=== PATIENT | male | born 1975 | race Two or more races ===

== ENCOUNTER 2020-02-21 06:46 | Inpatient (IN) | payer OTHER ==
[~2020-02-21] VITALS: Ht 195.6 cm; Wt 163.9 kg
[2020-02-21 13:24] LABS: Basophils # (auto) 0 10 ^3/uL (0-0.2); Basophils % (auto) 0.3 % (0.0-2.0); Eosinophils # (auto) 0 10 ^3/uL (0-0.8); Hematocrit 40.1 % (41.0-53.0); Hemoglobin 13.9 g/dL (13.5-17.5); Lymphocytes # (auto) 1.4 10 ^3/uL (0.4-5.4); Lymphocytes % (auto) 14.3 % (10.0-50.0); Mean Corpuscular Hemoglobin 30.8 pg (28.0-32.0); Mean Corpuscular Hgb Conc. 34.7 g/dL (32.0-36.0); Mean Corpuscular Volume 88.8 fL (80.0-100.0); Monocytes # (auto) 0.5 10 ^3/uL (0-1.3); Monocytes % (auto) 5.3 % (0.0-12.0); Neutrophils % (auto) 80.1 % (37.0-80.0); Nucleated Red Blood Cells % 0.1 %; Platelet Count (auto) 131 10^3/uL (140-450); Red Blood Cells 4.52 10^6/uL (4.5-5.90); Red Cell Distribution Width 13.7 % (11.8-14.3)
[2020-02-21 13:42] LABS: Albumin 2.8 g/dL (3.4-5.0); Anion Gap 10 (5-15); Blood Urea Nitrogen 13 mg/dL (7-18); Calcium 7.4 mg/dL (8.5-10.1); Carbon Dioxide 23 mmol/L (21-32); Chloride 97 mmol/L (98-107); Glucose 108 mg/dL (74-106); Potassium 3.5 mmol/L (3.5-5.1); Sodium 130 mmol/L (136-145)
[2020-02-21 13:47] LABS: Alanine Aminotransferase 152 U/L (16-61); Alkaline Phosphatase 61 U/L (45-117); Aspartate Aminotransferase 248 U/L (15-37); BUN/Creatinine Ratio 9.9; Bilirubin, Total 0.6 mg/dL (0.2-1.0); GFR African American 76 mL/min; GFR Non-African American 63 mL/min; Total Protein 7.6 g/dL (6.4-8.2)
[2020-02-21 13:54] LABS: INR 1.08 (0.9-1.15); Partial Thromboplastin Time 31.1 sec (23.0-31.2)
[2020-02-21] MEDS ORDERED: ONDANSETRON HCL 4 MG/2 ML VIAL IV PRN ×2 (15:00→23:00)
[2020-02-21] MEDS ORDERED: DexAMETHasone SOD PHOS 10MG/1ML VIAL INJ IV SCH (15:00)
[2020-02-21] MEDS ORDERED: HYDROcodone-ACET 5/325MG TAB PO PRN ×2 (15:00→23:00)
[2020-02-21] MEDS ORDERED: DOXYCYCLINE 100MG/250ML 250 ML IV SCH (15:00)
[2020-02-21] MEDS ORDERED: ACETAMINOPHEN 500 MG TAB PO PRN ×2 (15:00→23:00)
[2020-02-21] MEDS ORDERED: MORPHINE SULF INJ 2 MG/ML SYRINGE 1ML IV PRN ×4 (15:00→23:00)
[2020-02-21] MEDS ORDERED: NITROGLYCERIN 0.4 MG SL TAB SL PRN ×2 (15:00→22:30)
[2020-02-21] MEDS ORDERED: DOCUSATE SOD 100 MG CAP PO PRN ×2 (15:00→23:00)
[2020-02-21 16:16] LABS: CRP High Sensitivity 15.2 mg/dL (< 0.3)
--- NOTE | 2020-02-21 17:15 | NUR ---
Telemetry admit from ED CALLES admitted to Telemetry unit after SBAR received. Patient oriented to Mary Anne Dyson, primary RN, unit, room, bed, and unit policies regarding patient care and visiting hours. Patient now on continuous telemetry monitoring, tele box # [id number] and telemetry reading on arrival to unit is . Patient placed on bedside oxygen, weighed by bedscale and encouraged to call if they need something. All questions and concerns addressed, patient verbalized understanding. Note:
--- NOTE | 2020-02-21 17:30 | NUR ---
PT IS ALERT ORIENTED X4, ARRIVED VIA WHEELCHAIR, 5 L NC, SHORTNESS OF BREATH ON EXCERPTION, PT IS BIG AND TALL, LARGE SOFT ABDOMEN NOTED, PAIN 0/10, PT WAS ABLE TO STAND UP AND GET IN BED WITHOUT ASSISTANCE, NO DISTRESS NOTED, ROOM ORIENTATION GIVEN TO PT, CALL LIGHT WITHIN REACH
--- NOTE | 2020-02-21 18:46 | NUR ---
PT CONTINUE STABLE, CONTINUE MONITORING
[2020-02-21 19:36] LABS: Urine Bacteria FEW /hpf (None Seen); Urine Blood 3+ /uL (Negative); Urine Specific Gravity 1.017 (1.001-1.035); Urine WBC <1 /hpf (0 - 3)
[2020-02-21 21:19] VITALS: BP 121/70
[2020-02-21] MEDS ORDERED: ALBUTEROL SULF HFA 90MCG INH 200DOSE IN SCH (22:00)
[2020-02-21] MEDS ORDERED: BUDESONIDE (INHALATION) 180 MCG IH IN SCH (22:00)
[2020-02-21] MEDS: ALBUTEROL SULF HFA 90MCG INH 200DOSE IN SCH (23:00)
[2020-02-21] MEDS: BUDESONIDE (INHALATION) 180 MCG IH IN SCH (23:00)
[2020-02-21] MEDS: DOXYCYCLINE 100MG/250ML 250 ML IV SCH (23:04)
--- NOTE | 2020-02-21 23:06 | NUR ---
INFLUENZA A & B SWAB HAS BEEN SENT TO LAB.
--- NOTE | 2020-02-22 04:35 | NUR ---
PATIENT'S SPO2 ON 5L IS 86-88% WITH NO IMPROVEMENT WHILE PRONE. THE PATIENT HAS BEEN PLACED ON 8 L OXYMIZER.
[2020-02-22 05:31] VITALS: BP 126/67
[2020-02-22] MEDS: ALBUTEROL SULF HFA 90MCG INH 200DOSE IN SCH ×3 (06:00→23:18)
--- NOTE | 2020-02-22 08:00 | NUR ---
ASSESSMENT NOTE PT IS ALERT ORIENTED X4, RESTING IN BED COMFORTABLY ABLE TO SELF REPOSITION AND VERBALIS HIS DEMANDS, AMBULATE NEEDED, OXYGEN OXYMIZER AT 12 L SAT AT 91 %, PAIN 0/10, CALL LIGHT WITHIN REACH
[2020-02-22 09:00] VITALS: BP 114/68
[2020-02-22] MEDS: DOXYCYCLINE 100MG/250ML 250 ML IV SCH ×2 (09:17→22:00)
[2020-02-22] MEDS: ZINC SULFATE 220mg CAP or TAB PO SCH (09:17)
[2020-02-22] MEDS: FAMOTIDINE 20 MG TAB PO SCH (09:17)
[2020-02-22] MEDS: DexAMETHasone SOD PHOS 10MG/1ML VIAL INJ IV SCH (09:17)
[2020-02-22] MEDS: ENOXAPARIN SOD 40 MG/0.4 ML SYRINGE SC SCH (09:18)
[2020-02-22] MEDS: CHOLECALCIFEROL (VITD3) 2,000 UNIT CAP PO SCH (09:18)
[2020-02-22] MEDS: ASCORBIC ACID 1,000 MG TAB PO SCH (09:18)
[2020-02-22] MEDS: BUDESONIDE (INHALATION) 180 MCG IH IN SCH ×3 (10:00→23:18)
[2020-02-22] MEDS ORDERED: ASCORBIC ACID 1,000 MG TAB PO SCH (10:00)
[2020-02-22] MEDS ORDERED: FAMOTIDINE 20 MG TAB PO SCH (10:00)
[2020-02-22] MEDS ORDERED: ZINC SULFATE 220mg CAP or TAB PO SCH (10:00)
[2020-02-22] MEDS ORDERED: ENOXAPARIN SOD 40 MG/0.4 ML SYRINGE SC SCH (10:00)
[2020-02-22] MEDS ORDERED: CHOLECALCIFEROL (VITD3) 2,000 UNIT CAP PO SCH (10:00)
--- NOTE | 2020-02-22 12:01 | NUR ---
DR FLORES AT BED SIDE, FOLLOWING UP ON PT AND EXPLAINING THE CONVALESCENT PLASMA
[2020-02-22 13:00] VITALS: BP 132/75
[2020-02-22] MEDS ORDERED: LEVOTHYROXINE SODIUM 100 MCG TAB PO ONE (13:00)
[2020-02-22] MEDS ORDERED: guaiFENesin-DM 100/10mg/5ml SYR PO PRN (13:00)
--- NOTE | 2020-02-22 13:02 | NUR ---
INCENTIVE SPIROMETER EDUCATED PT HOW TO USE IT AND WHY, PT VERBALIS UNDERSTANDING, PT WAS ABLE TO DEMONSTRATED BACK
[2020-02-22 13:17] LABS: BUN/Creatinine Ratio 11.8; Calcium 7.7 mg/dL (8.5-10.1); Potassium 3.6 mmol/L (3.5-5.1)
[2020-02-22 13:40] VITALS: BP 132/75
[2020-02-22 16:39] VITALS: BP 126/72
[2020-02-22] MEDS ORDERED: LEV100T PO (17:35)
--- NOTE | 2020-02-22 18:21 | NUR ---
PT CONTINUE STABLE, CONTINUE MONITORING
--- NOTE | 2020-02-22 19:35 | NUR ---
Opening Shift Note Assumed care of patient, awake and alert. Patient is currently on 10 L Oxymizer with no S/S of distress/SOB. Patient denies any pain. Bed is locked in lowest position with call light within reach. Instructed on POC and to call for assist PRN, will continue to monitor for changes Q1hr and PRN.
[2020-02-22 21:08] VITALS: BP 130/76
[2020-02-23] VITALS (10 sets, daily range): BP systolic 105–115; BP diastolic 59–71
[2020-02-23] MEDS: ALBUTEROL SULF HFA 90MCG INH 200DOSE IN SCH ×3 (06:02→22:58)
[2020-02-23] MEDS: BUDESONIDE (INHALATION) 180 MCG IH IN SCH (06:02)
[2020-02-23] MEDS: LEVOTHYROXINE SODIUM 100 MCG TAB PO SCH (07:00)
[2020-02-23 07:45] LABS: Basophils # (auto) 0 10 ^3/uL (0-0.2); Basophils % (auto) 0.2 % (0.0-2.0); Eosinophils # (auto) 0 10 ^3/uL (0-0.8); Hematocrit 38.6 % (41.0-53.0); Hemoglobin 13.5 g/dL (13.5-17.5); Lymphocytes # (auto) 1.1 10 ^3/uL (0.4-5.4); Lymphocytes % (auto) 13.1 % (10.0-50.0); Mean Corpuscular Hemoglobin 30.5 pg (28.0-32.0); Mean Corpuscular Hgb Conc. 34.9 g/dL (32.0-36.0); Mean Corpuscular Volume 87.5 fL (80.0-100.0); Monocytes # (auto) 0.9 10 ^3/uL (0-1.3); Monocytes % (auto) 10.1 % (0.0-12.0); Neutrophils # (auto) 6.5 10 ^3/uL (1.6-8.6); Neutrophils % (auto) 76.6 % (37.0-80.0); Nucleated Red Blood Cells % 0.1 %; Platelet Count (auto) 183 10^3/uL (140-450); Red Blood Cells 4.42 10^6/uL (4.5-5.90); Red Cell Distribution Width 13.6 % (11.8-14.3); White Blood Cell 8.5 10^3/uL (4.4-10.8)
[2020-02-23 08:07] LABS: Albumin 2.6 g/dL (3.4-5.0); BUN/Creatinine Ratio 17.3; Calcium 7.7 mg/dL (8.5-10.1); Potassium 3.6 mmol/L (3.5-5.1)
[2020-02-23 08:20] LABS: Bilirubin, Total 0.5 mg/dL (0.2-1.0); Total Protein 7.3 g/dL (6.4-8.2)
[2020-02-23] MEDS: DOXYCYCLINE 100MG/250ML 250 ML IV SCH ×2 (09:46→23:00)
[2020-02-23] MEDS: ENOXAPARIN SOD 40 MG/0.4 ML SYRINGE SC SCH (09:47)
[2020-02-23] MEDS: DexAMETHasone SOD PHOS 10MG/1ML VIAL INJ IV SCH (09:47)
[2020-02-23] MEDS: FAMOTIDINE 20 MG TAB PO SCH (09:59)
[2020-02-23] MEDS: ASCORBIC ACID 1,000 MG TAB PO SCH (10:00)
[2020-02-23] MEDS: ZINC SULFATE 220mg CAP or TAB PO SCH (10:00)
[2020-02-23] MEDS: CHOLECALCIFEROL (VITD3) 2,000 UNIT CAP PO SCH (10:00)
--- NOTE | 2020-02-23 10:00 | NUR ---
PT C/O PAIN TO IV SITE LW #20 IV CATHETER DC'D, CATHETER INTACT. IV INSERTION TO LEFT HAND #20. FLUSHES WELL. PT TOLERATED PROCEDURE WELL.
--- NOTE | 2020-02-23 14:20 | NUR ---
DR. MENDIOLA IN TO SEE PT. PT IN AGREEMENT WITH [facility] INF[facility].
[2020-02-23] MEDS ORDERED: REMDESIVIR PER PHARMACY IV SCH (15:00)
[2020-02-23] MEDS ORDERED: REMDESIVIR 200 MG in NS 210ml LOADING DOSE ADULT IV ONE (17:00)
--- NOTE | 2020-02-23 19:45 | NUR ---
Opening Shift Note Assumed care of patient. Patient is awake, alert, and oriented X 4. No S/S of distress noted. Respirations are regular and non-labored. Pt is on 10 LPM Oxymazer. Denies pain at this time. Bed in lowest locked position, bed rails up X 2, call light is within reach. Pt instructed on POC and to call for assistance as needed. Will continue to monitor for changes Q1hr and PRN.
[2020-02-24 05:00] VITALS: BP 119/67
[2020-02-24] MEDS: ALBUTEROL SULF HFA 90MCG INH 200DOSE IN SCH ×3 (05:59→21:04)
[2020-02-24] MEDS: BUDESONIDE (INHALATION) 180 MCG IH IN SCH ×2 (05:59→21:04)
[2020-02-24 06:38] LABS: Basophils # (auto) 0 10 ^3/uL (0-0.2); Basophils % (auto) 0.1 % (0.0-2.0); Eosinophils # (auto) 0 10 ^3/uL (0-0.8); Hematocrit 39.6 % (41.0-53.0); Hemoglobin 13.6 g/dL (13.5-17.5); Lymphocytes # (auto) 1.2 10 ^3/uL (0.4-5.4); Lymphocytes % (auto) 14.1 % (10.0-50.0); Mean Corpuscular Hemoglobin 30.1 pg (28.0-32.0); Mean Corpuscular Hgb Conc. 34.5 g/dL (32.0-36.0); Mean Corpuscular Volume 87.3 fL (80.0-100.0); Monocytes # (auto) 0.9 10 ^3/uL (0-1.3); Monocytes % (auto) 10.5 % (0.0-12.0); Neutrophils # (auto) 6.7 10 ^3/uL (1.6-8.6); Neutrophils % (auto) 75.3 % (37.0-80.0); Nucleated Red Blood Cells % 0.1 %; Platelet Count (auto) 208 10^3/uL (140-450); Red Blood Cells 4.53 10^6/uL (4.5-5.90); Red Cell Distribution Width 13.7 % (11.8-14.3); White Blood Cell 8.9 10^3/uL (4.4-10.8)
[2020-02-24 06:55] LABS: Albumin 2.6 g/dL (3.4-5.0); Calcium 7.8 mg/dL (8.5-10.1); Potassium 3.8 mmol/L (3.5-5.1)
[2020-02-24 06:58] LABS: BUN/Creatinine Ratio 15.6
[2020-02-24] MEDS: LEVOTHYROXINE SODIUM 100 MCG TAB PO SCH (06:59)
[2020-02-24 07:00] LABS: Bilirubin, Total 0.6 mg/dL (0.2-1.0); Total Protein 7.2 g/dL (6.4-8.2)
--- NOTE | 2020-02-24 07:30 | NUR ---
Opening Shift Note RECIEVED REPORT FROM NOC RN. Assumed care of patient, awake and alert. PATIENT ON OXYGEN AT 10 L OXYMIZER WITH no S/S of distress/SOB or pain. BED IN LOWEST, LOCKED POSITION WITH SIDERAILS UP x2 AND CALL LIGHT WITHIN REACH. Instructed on POC and to call for assist PRN, will continue to monitor for changes Q1hr and PRN.
[2020-02-24 09:00] VITALS: BP 112/63
[2020-02-24] MEDS: ASCORBIC ACID 1,000 MG TAB PO SCH (10:00)
--- NOTE | 2020-02-24 10:13 | NUR ---
Nutrition Assessment Est energy needs [id number] kcal (11-14 kcal/kg BW 163.7kg) Est protein needs 90-118g (1-1.3g/kg IBW 90kg) will monitor and reassess prn. Addendum: 02/24/20 at [address] Amended: Links added.
[2020-02-24] MEDS: DexAMETHasone SOD PHOS 10MG/1ML VIAL INJ IV SCH (10:24)
[2020-02-24] MEDS: ENOXAPARIN SOD 40 MG/0.4 ML SYRINGE SC SCH (10:25)
[2020-02-24] MEDS: CHOLECALCIFEROL (VITD3) 2,000 UNIT CAP PO SCH (10:25)
[2020-02-24] MEDS: ZINC SULFATE 220mg CAP or TAB PO SCH (10:25)
[2020-02-24] MEDS: DOXYCYCLINE 100MG/250ML 250 ML IV SCH ×2 (10:25→22:23)
[2020-02-24] MEDS: FAMOTIDINE 20 MG TAB PO SCH (10:25)
[2020-02-24 17:00] VITALS: BP 104/55
[2020-02-24] MEDS: REMDESIVIR 100mg in NS 230ml DAILYx4DAYS (NO VENT) IV SCH (17:12)
--- NOTE | 2020-02-24 19:32 | NUR ---
Opening Shift Note Assumed care of patient. Patient is resting in bed, alert and oriented X 4, with regular and non-labored respirations. No S/S of distress noted. Pt is on 6 LPM NC. Denies pain at this time. Bed in lowest locked position, bed rails up X 2, call light is within reach. Pt instructed on POC and to call for assistance as needed. Will continue to monitor for changes Q1hr and PRN.
[2020-02-24 22:00] VITALS: BP 110/66
[2020-02-24] MEDS ORDERED: FUROSEMIDE 20 MG/2 ML VIAL IV ONE (22:00)
[2020-02-25 05:00] VITALS: BP 105/65
[2020-02-25] MEDS: ALBUTEROL SULF HFA 90MCG INH 200DOSE IN SCH ×3 (05:58→22:54)
[2020-02-25] MEDS: BUDESONIDE (INHALATION) 180 MCG IH IN SCH ×2 (05:58→22:55)
[2020-02-25] MEDS ORDERED: FUROSEMIDE 20 MG/2 ML VIAL IV SCH (06:00)
[2020-02-25] MEDS: LEVOTHYROXINE SODIUM 100 MCG TAB PO SCH (06:24)
[2020-02-25 07:11] LABS: Albumin 2.6 g/dL (3.4-5.0); Calcium 8.1 mg/dL (8.5-10.1); Potassium 3.7 mmol/L (3.5-5.1)
[2020-02-25 07:15] LABS: BUN/Creatinine Ratio 19.2; Bilirubin, Total 0.8 mg/dL (0.2-1.0); Total Protein 7.1 g/dL (6.4-8.2)
[2020-02-25 09:00] VITALS: BP 122/70
[2020-02-25 09:28] VITALS: BP 105/65
[2020-02-25] MEDS: DexAMETHasone SOD PHOS 10MG/1ML VIAL INJ IV SCH (09:52)
[2020-02-25] MEDS: DOXYCYCLINE 100MG/250ML 250 ML IV SCH ×2 (09:53→21:48)
[2020-02-25] MEDS: ZINC SULFATE 220mg CAP or TAB PO SCH (09:55)
[2020-02-25] MEDS: ASCORBIC ACID 1,000 MG TAB PO SCH (09:55)
[2020-02-25] MEDS: FAMOTIDINE 20 MG TAB PO SCH (09:55)
[2020-02-25] MEDS: CHOLECALCIFEROL (VITD3) 2,000 UNIT CAP PO SCH (09:57)
[2020-02-25] MEDS: ENOXAPARIN SOD 40 MG/0.4 ML SYRINGE SC SCH (09:57)
[2020-02-25] MEDS ORDERED: POTASSIUM CHL 20 Meq TABLET PO ONE (11:15)
[2020-02-25] MEDS ORDERED: LACTULOSE 20Gm/30ML SOLN PO ONE (11:15)
--- NOTE | 2020-02-25 12:14 | NUR ---
IV insertion IV access obtained, via clean sterile technique by inserting 22 gauge catheter at right forearm after 1 attempt. IV secured properly. No trauma to site. Patient tolerated well.
[2020-02-25 13:00] VITALS: BP 90/48
[2020-02-25 16:56] VITALS: BP 118/68
[2020-02-25] MEDS: REMDESIVIR 100mg in NS 230ml DAILYx4DAYS (NO VENT) IV SCH (17:35)
[2020-02-25] MEDS: FUROSEMIDE 20 MG/2 ML VIAL IV SCH (18:00)
[2020-02-25] MEDS: POTASSIUM CHL 20 Meq TABLET PO SCH (21:48)
[2020-02-25 22:00] VITALS: BP 120/75
[2020-02-26 05:00] VITALS: BP 116/70
[2020-02-26 05:52] LABS: Albumin 2.6 g/dL (3.4-5.0); Calcium 8.3 mg/dL (8.5-10.1); Potassium 4.6 mmol/L (3.5-5.1)
[2020-02-26 05:56] LABS: BUN/Creatinine Ratio 15.6; Bilirubin, Total 0.7 mg/dL (0.2-1.0); Total Protein 6.9 g/dL (6.4-8.2)
[2020-02-26] MEDS: FUROSEMIDE 20 MG/2 ML VIAL IV SCH ×2 (05:59→18:32)
[2020-02-26] MEDS: LEVOTHYROXINE SODIUM 100 MCG TAB PO SCH (06:02)
[2020-02-26] MEDS: ALBUTEROL SULF HFA 90MCG INH 200DOSE IN SCH ×3 (06:39→22:27)
[2020-02-26] MEDS: BUDESONIDE (INHALATION) 180 MCG IH IN SCH ×2 (06:40→22:28)
[2020-02-26 09:00] VITALS: BP 99/57
[2020-02-26] MEDS: ZINC SULFATE 220mg CAP or TAB PO SCH (09:50)
[2020-02-26] MEDS: CHOLECALCIFEROL (VITD3) 2,000 UNIT CAP PO SCH (09:50)
[2020-02-26] MEDS: FAMOTIDINE 20 MG TAB PO SCH (09:50)
[2020-02-26] MEDS: POTASSIUM CHL 20 Meq TABLET PO SCH ×2 (09:51→21:19)
[2020-02-26] MEDS: ASCORBIC ACID 1,000 MG TAB PO SCH (09:51)
[2020-02-26] MEDS: ENOXAPARIN SOD 40 MG/0.4 ML SYRINGE SC SCH (09:52)
[2020-02-26] MEDS: DexAMETHasone SOD PHOS 10MG/1ML VIAL INJ IV SCH (09:52)
[2020-02-26] MEDS ORDERED: LACTULOSE 20Gm/30ML SOLN PO PRN (10:00)
[2020-02-26 12:34] VITALS: BP 123/75
[2020-02-26] MEDS: REMDESIVIR 100mg in NS 230ml DAILYx4DAYS (NO VENT) IV SCH (16:34)
[2020-02-26 16:37] VITALS: BP 104/65
--- NOTE | 2020-02-26 18:30 | NUR ---
REMDESIVIR V/S PRE V/S 98.3 75HR 95% 104/65 15 MINUTE REMDESIVIR-97.9 122/73 B/P 96% 64 HR POST REMDESIVIR V/S 119/71 64HR 95% TEMP 98.0 96% 1 HOUR POST 124/73 B/P 66HR TEMP 98.1 02 95% NO S/S OF DISTRESS NOTED
[2020-02-26 22:12] VITALS: BP 128/72
[2020-02-27 05:29] VITALS: BP 118/76
[2020-02-27] MEDS: LEVOTHYROXINE SODIUM 100 MCG TAB PO SCH (06:49)
[2020-02-27] MEDS: FUROSEMIDE 20 MG/2 ML VIAL IV SCH ×2 (06:49→18:00)
[2020-02-27 07:23] LABS: Albumin 2.6 g/dL (3.4-5.0); BUN/Creatinine Ratio 23.8; Bilirubin, Total 0.7 mg/dL (0.2-1.0); Calcium 8.3 mg/dL (8.5-10.1); Total Protein 7.2 g/dL (6.4-8.2)
[2020-02-27 08:33] VITALS: BP 111/70
[2020-02-27] MEDS: ENOXAPARIN SOD 40 MG/0.4 ML SYRINGE SC SCH (10:28)
[2020-02-27] MEDS: CHOLECALCIFEROL (VITD3) 2,000 UNIT CAP PO SCH (10:28)
[2020-02-27] MEDS: DexAMETHasone SOD PHOS 10MG/1ML VIAL INJ IV SCH (10:29)
[2020-02-27] MEDS: ASCORBIC ACID 1,000 MG TAB PO SCH (10:29)
[2020-02-27] MEDS: POTASSIUM CHL 20 Meq TABLET PO SCH (10:29)
[2020-02-27] MEDS: ZINC SULFATE 220mg CAP or TAB PO SCH (10:29)
[2020-02-27] MEDS: FAMOTIDINE 20 MG TAB PO SCH (10:29)
[2020-02-27] MEDS ORDERED: ASPI81CH43 PO (10:55)
[2020-02-27] MEDS ORDERED: CHOL20007 PO (10:55)
[2020-02-27] MEDS ORDERED: DEX4T PO (10:55)
[2020-02-27] MEDS ORDERED: FURO40TA4 PO (10:55)
[2020-02-27] MEDS ORDERED: ZINC220T6 PO (10:55)
[2020-02-27] MEDS ORDERED: ASCO500T11 PO (10:55)
[2020-02-27] MEDS ORDERED: POTA-220 PO (10:55)
[2020-02-27] MEDS ORDERED: ALBUAER3 IN (10:55)
[2020-02-27] MEDS ORDERED: DOXYCYCLINE 100 MG TAB/CAP PO ONE (11:00)
--- NOTE | 2020-02-27 11:40 | NUR ---
Nutrition Followup Note wt: 163.9 kg Pt is in covid isolation, not attempted to call as pt with SOB per records. pt is currently on regular diet with adequate PO of 75% x6 per RN doc Est energy needs 2984-6555 kcal (11-14 kcal/kg BW 163.7kg) Est protein needs 90-118g (1-1.3g/kg IBW 90kg) will monitor and reassess prn. Labs: BUN 20 H CA 8.3 L ALB 2.6 L BM: Pt with 1 BM yesterday per RN note Skin: BS 19 low risk, full details in care giver note PES: Obesity aeb pt with a BMI of 42.8kg/m2 r/t caloric intake in excess of needs Comments: Will continue to monitor PO intake, skin status, pertinent labs and weight trends. Will f/u in 3-5 days 1) refer to [facility] dietitian on DC. 2) Continue current plan of care
[2020-02-27 12:29] VITALS: BP 99/65
--- NOTE | 2020-02-27 15:12 | NUR ---
I faxed home oxygen order to [facility]-requesting authorization for [facility].
--- NOTE | 2020-02-27 15:21 | NUR ---
Assessment Patient is a 44-year-old male who is alert and oriented. Prior to admission patient lived home with his Marine and functioned independently. Patient will return home to his prior living arrangements post discharge and family will transport him home. Patient does not have any medical equipment now. Advised patient to follow up with primary doctor upon d.c day. Advised patient there is a social service consult for home oxygen. Informed patient clinical information will be faxed to [facility]. Informed patient he has the right to participate in all discharge planning. Patient verbalized understanding and agreed to discharge plan. Faxed clinical information to [facility] requesting for oxygen portable to be deliver to [facility]. Per Jes with [employer] they will deliver portable between 4:00-6:00pm and concentrate oxygen to patient home. Informed SAVANA Michele. Addendum: 02/27/20 at 1527 by ASHANTI SALDIVAR Amended: Links added.
[2020-02-27] MEDS: REMDESIVIR 100mg in NS 230ml DAILYx4DAYS (NO VENT) IV SCH (17:20)
[2020-02-27 17:24] VITALS: BP 124/69
--- NOTE | 2020-02-27 18:00 | NUR ---
Home Oxygen delivered to patients room.
--- NOTE | 2020-02-27 18:05 | NUR ---
REMEDESIVIR V/S PRE REMDESIVIR 124/69 HR 71 15 MINUTE V/S 107/62 HR 69 POST REMDESIVIR 99/59
--- NOTE | 2020-02-27 19:05 | NUR ---
1 hour post remdesivir v/s 112/64 88 hr no s/s of distress noted.
--- NOTE | 2020-02-27 19:47 | NUR ---
Discharge instructions given as ordered. Encourage to follow up with PMD as instructed. All questions and concerns addressed. Patient verbalized understanding. Medication reconciliation form completed and copy given to patient. Home oxygen education given. IV removed with catheter intact, pressure dressing applied. Patient taken to vehicle via wheelchair with all personal belongings, accompanied by staff and family member waiting in front lobby for transportation home. No distress noted at time of departure.
[2020-02-27] MEDS ORDERED: DOXYCYCLINE 100 MG TAB/CAP PO SCH (22:00)
== END 2020-02-27 19:48 | disposition home or self-care (01) | DRG 137 ==
LOC: EDBD 06:46 → ER 06:46 → TELE-CENTR 06:47 → ER 17:08 → CENTRAL 02-25 10:52
PROVIDERS: ADMIT Nurse Practitioner Acute Care; ATTEND Internal Medicine
PROC: XW13325 Transfusion of Convalescent Plasma (Nonautologous) into Peripheral Vein, Percutaneous Approach, New Technology Group 5 (ICD-10-PCS; principal; 2020-02-23)
PROC: XW033E5 Introduction of Remdesivir Anti-infective into Peripheral Vein, Percutaneous Approach, New Technology Group 5 (ICD-10-PCS; 2020-02-23)
DX: U07.1 COVID-19 (principal); J96.01 Acute respiratory failure with hypoxia; J12.89 Other viral pneumonia; N17.0 Acute kidney failure with tubular necrosis; I50.33 Acute on chronic diastolic (congestive) heart failure; E66.01 Morbid (severe) obesity due to excess calories; N18.30 Chronic kidney disease, stage 3 unspecified; E03.9 Hypothyroidism, unspecified; I16.1 Hypertensive emergency; R79.89 Other specified abnormal findings of blood chemistry; E44.0 Moderate protein-calorie malnutrition; E05.90 Thyrotoxicosis, unspecified without thyrotoxic crisis or storm; Z68.41 Body mass index [BMI] 40.0-44.9, adult; I12.9 Hypertensive chronic kidney disease with stage 1 through stage 4 chronic kidney disease, or unspecified chronic kidney disease
CPT/HCPCS: 36415; 71045; 76705; 80048; 80053; 81001; 82728; 83615; 83735; 83880; 84443; 84484; 85025; 85379; 85610; 85730; 86141; 86850; 86900; 86901; 87040; 87426; 87804; 94640; G0378; J1100; J3490

== ENCOUNTER 2020-11-30 09:45 | Emergency (ER) | payer MEDICAID, OTHER ==
[~2020-11-30] VITALS: Ht 195.6 cm; Wt 161.0 kg
[~2020-11-30 09:45] MED LIST: ALBUAER3 IN; ASCO500T11 PO; ASPI81CH43 PO; CHOL20007 PO; DEX4T PO; FURO40TA4 PO; LEV100T PO; POTA-220 PO; ZINC220T6 PO
[2020-11-30 10:40] LABS: Basophils # (auto) 0.1 10 ^3/uL (0-0.2); Basophils % (auto) 0.7 % (0.0-2.0); Eosinophils # (auto) 0.2 10 ^3/uL (0-0.8); Eosinophils % (auto) 2.2 % (0.0-7.0); Hematocrit 44.3 % (41.0-53.0); Lymphocytes # (auto) 3.4 10 ^3/uL (0.4-5.4); Lymphocytes % (auto) 33.4 % (10.0-50.0); Mean Corpuscular Hemoglobin 29.2 pg (28.0-32.0); Mean Corpuscular Hgb Conc. 33.8 g/dL (32.0-36.0); Mean Corpuscular Volume 86.5 fL (80.0-100.0); Monocytes # (auto) 0.6 10 ^3/uL (0-1.3); Monocytes % (auto) 5.9 % (0.0-12.0); Neutrophils # (auto) 5.9 10 ^3/uL (1.6-8.6); Neutrophils % (auto) 57.8 % (37.0-80.0); Red Blood Cells 5.12 10^6/uL (4.5-5.90); Red Cell Distribution Width 13.2 % (11.8-14.3); White Blood Cell 10.2 10^3/uL (4.4-10.8)
[2020-11-30 10:57] LABS: Urine Bacteria NONE SEEN /hpf (None Seen); Urine Blood 1+ /uL (Negative); Urine Mucus FEW (None Seen); Urine Specific Gravity 1.024 (1.001-1.035); Urine WBC 1 /hpf (0 - 3)
[2020-11-30 11:07] LABS: Alanine Aminotransferase 33 U/L (16-61); Albumin 3.3 g/dL (3.4-5.0); Alkaline Phosphatase 80 U/L (45-117); Anion Gap 6 (5-15); Aspartate Aminotransferase 19 U/L (15-37); BUN/Creatinine Ratio 11.5; Bilirubin, Total 0.6 mg/dL (0.2-1.0); Blood Urea Nitrogen 12 mg/dL (7-18); Calcium 9.1 mg/dL (8.5-10.1); Carbon Dioxide 28 mmol/L (21-32); Chloride 104 mmol/L (98-107); GFR African American 98 mL/min; GFR Non-African American 81 mL/min; Glucose 129 mg/dL (74-106); Magnesium 2.3 mg/dL (1.6-2.6); Potassium 3.9 mmol/L (3.5-5.1); Sodium 138 mmol/L (136-145)
[2020-11-30] MEDS ORDERED: IOHEXOL 350 MG/ML 100ML IJ ONE ×2 (20:18→20:49)
[2020-11-30 22:00] VITALS: BP 132/76
== END 2020-11-30 23:28 | disposition home or self-care (01) ==
LOC: ER 09:45
DX: R06.02 Shortness of breath (principal); R25.2 Cramp and spasm; E66.01 Morbid (severe) obesity due to excess calories; M24.849 Other specific joint derangements of unspecified hand, not elsewhere classified; Z68.41 Body mass index [BMI] 40.0-44.9, adult; Z20.822 Contact with and (suspected) exposure to COVID-19
CPT/HCPCS: 36415; 71045; 71275; 80053; 81001; 83735; 84484; 85025; 85379; 87426; 93005; 93971; 99285; Q9967

== ENCOUNTER 2023-01-20 22:18 | Emergency (ER) | payer MEDICAID ==
[~2023-01-20] VITALS: Ht 195.6 cm; Wt 168.6 kg
[2023-01-21 00:05] LABS: Urine Amorphous Crystal FEW /hpf (None Seen); Urine Bacteria NONE SEEN /hpf (None Seen); Urine Blood 3+ /uL (Negative); Urine Clarity Clear (Clear); Urine Color Yellow (Yellow); Urine Mucus FEW (None Seen); Urine Protein, UAD 2+ (Negative); Urine Specific Gravity 1.026 (1.001-1.035); Urine WBC 3 /hpf (0 - 3)
[2023-01-21 00:14] LABS: Basophils # (auto) 0.1 10 ^3/uL (0-0.2); Basophils % (auto) 0.9 % (0.0-2.0); Eosinophils # (auto) 0.3 10 ^3/uL (0-0.8); Hematocrit 44.2 % (41.0-53.0); Hemoglobin 14.9 g/dL (13.5-17.5); Lymphocytes % (auto) 31.2 % (10.0-50.0); Mean Corpuscular Hemoglobin 28.6 pg (28.0-32.0); Mean Corpuscular Hgb Conc. 33.6 g/dL (32.0-36.0); Mean Corpuscular Volume 85.1 fL (80.0-100.0); Monocytes # (auto) 0.9 10 ^3/uL (0-1.3); Monocytes % (auto) 7.2 % (0.0-12.0); Neutrophils # (auto) 7.6 10 ^3/uL (1.6-8.6); Neutrophils % (auto) 58.7 % (37.0-80.0); Nucleated Red Blood Cells % 0.1 %; Red Cell Distribution Width 13.4 % (11.8-14.3); White Blood Cell 12.9 10^3/uL (4.4-10.8)
[2023-01-21 00:33] LABS: Alanine Aminotransferase 34 U/L (7-40); Albumin 4.7 g/dL (3.2-4.8); Alkaline Phosphatase 93 U/L (46-116); Anion Gap 7 (5-15); Aspartate Aminotransferase 26 U/L (13-40); BUN/Creatinine Ratio 8.5 (10.0-20.0); Bilirubin, Total 1.2 mg/dL (0.2-1.0); Blood Urea Nitrogen 9 mg/dL (9-23); Calcium 9.4 mg/dL (8.7-10.4); Carbon Dioxide 29 mmol/L (20-30); Chloride 101 mmol/L (98-107); Glucose 96 mg/dL (74-106); Lipase 62 U/L (12-53); Potassium 3.7 mmol/L (3.5-5.1); Sodium 137 mmol/L (136-145); Total Protein 8.3 g/dL (5.7-8.2)
[2023-01-21] MEDS ORDERED: PHEN-1045 PO (04:27)
[2023-01-21] MEDS ORDERED: cefTRIAXone SOD 1,000 MG VL IM ONE (04:30)
[2023-01-21 04:43] VITALS: BP 146/79; PULSE 79; RESP 16; TEMP 98.3; O2SAT 97
[2023-01-23 01:06] LABS: Chlamydia Trachomatis, NAA Negative (Negative); Neisseria gonorrhoeae, NAA Negative (Negative)
== END 2023-01-21 04:53 | disposition home or self-care (01) ==
LOC: ER 22:18
DX: R10.9 Unspecified abdominal pain (principal); K76.0 Fatty (change of) liver, not elsewhere classified; R33.9 Retention of urine, unspecified; R30.0 Dysuria
CPT/HCPCS: 36415; 51702; 74176; 76870; 80053; 81001; 83690; 84153; 85025